=== PATIENT | female | born 1985 | race Caucasian/White ===

== ENCOUNTER 2016-11-04 22:54 | Inpatient (IN) | payer OTHER ==
--- NOTE | ~2016-11-04 | HP ---
Unit #: [id number] #: [id number] Patient: NAOMI MORRIS [id number] [place] [address] [id number] MR#: [id number] NAME: NAOMI MORRIS. ROOM: P177 Age: 30 Sex: F Admission Date: 11/04/2016 : 1985 Attending Physician: Adrienne Sarmiento M.D. Admitting Physician: Adrienne Sarmiento M.D. Primary Care Physician: Primary Care Physician No HISTORY AND PHYSICAL HISTORY OF PRESENT ILLNESS Naomi is a 30 year old admitted to [facility] because of her drug use. She shoots heroin. PAST MEDICAL HISTORY Long history of opioid abuse to include IV heroin. PAST SURGICAL HISTORY 1. x2. 2. Pelvic lap with right oophorectomy. ALLERGIES No known drug allergies. SOCIAL HISTORY Smokes 1 pack per day. Denies alcohol. Admits to a long history of opioid abuse to include IV heroin. FAMILY HISTORY Medically noncontributory. REVIEW OF SYSTEMS CONSTITUTIONAL: No fever or chills. HEENT: Denies any sore throat, ear pain or runny nose. CARDIOVASCULAR: Denies chest pain, irregular heart rhythm or palpitations. CHEST: Denies shortness of breath or cough. No hemoptysis. GASTROINTESTINAL: Denies nausea, vomiting, diarrhea or chronic constipation. ENDOCRINE: Denies history of increased thirst or urination. No recent significant weight loss or gain. GENITOURINARY: Denies dysuria, frequency, or hematuria. SKIN: She does report that she thinks that she broke a needle off in her left AC area 7 to 10 days ago. She complains of tenderness in the area. HEMATOLOGIC: Denies history of increased bleeding or bruising. MUSCULOSKELETAL: Denies any hot, swollen joints. No generalized muscle pain. NEUROLOGIC: Denies problems with vision or speech. No frequent, severe headaches. No numbness, tingling or weakness in any extremities. Denies loss of bladder or bowel control. CURRENT MEDICATIONS Detox protocol. Unit #: [id number] #: [id number] Patient: NAOMI MORRIS PHYSICAL EXAMINATION GENERAL: Alert, well-nourished, in no apparent distress. VITAL SIGNS: Blood pressure 100/50, heart rate 80, respirations 16, temperature 98.6. WEIGHT: 149. HEIGHT: 5 feet 2 inches. SKIN: Warm and dry without rash. She does have approximately nickel-sized round, raised, tender area along the left AC. There is minimal redness and no heat. HEENT: Normocephalic. TMs not viewed. Oral and nasal passages clear. Conjunctivae clear. PERRLA. EOMs intact. NECK: Supple without lymphadenopathy or thyromegaly. HEART: Regular rate and rhythm without murmur. LUNGS: Clear. ABDOMEN: Soft, nontender. : Not done. EXTREMITIES: No evidence of cyanosis, clubbing or edema. Moves all without focal deficit. NEUROLOGICAL: Grossly within normal limits. Cranial Nerves: II: Visual zepeda are intact. III, IV AND : Extraocular movements are intact. Pupils are equal, round and reactive to light. V: Facial sensation is grossly normal. VII: Facial movements and expression are normal. VIII: Auditory acuity grossly intact. IX, X: Uvula is midline. Phonation is normal. XI: Patient shrugs shoulders and turns head normally. XII: Tongue protrudes in the midline. Sensory and Motor Function: Sensory and motor sensation is grossly normal. Motor: moves all extremities well. Coordination: Gait is normal. Deep Tendon Reflexes: Intact. IMPRESSION 1. Psychiatric admission. 2. Long history of IV drug use. 3. Abscess along the left AC area. The patient reports there may be a piece of needle in that area. RECOMMENDATIONS PSYCHIATRIC: Per psychiatrist. MEDICAL: 1. See no contraindications to participate in facility's activities. 2. Detox per protocol. 3. Start Cleocin 300 mg 1 p.o. t.i.d. x7 days. Dictated by... Krystin Gamble PGlenAGlen-Kelly. for Jyoti Belcher/asuncion TD: 11/05/2016 19:09 JOB #: [id number] Unit #: [id number] #: [id number] Patient: NAOMI MORRIS HISTORY AND PHYSICAL Page 1 of 1 X Krystin Gamble HISTORY AND PHYSICAL
--- NOTE | ~2016-11-04 | PA ---
Unit #: [id number] #: [id number] Patient: [facility]ORRIS [id number] [facility] [address] [place] [address] [id number] I MR#: [id number] NAME: NAOMI MORRIS. ROOM: P177 Age: 30 Sex: F Admission Date: 11/04/2016 : 1985 Date of Assessment: 11/04/2016 Attending Physician: Adrienne Sarmiento M.D. Admitting Physician: Adrienne Sarmiento M.D. Primary Care Physician: Primary Care Physician No PSYCHIATRIC ASSESSMENT DATE OF SERVICE 11/05/2016. IDENTIFYING DATA Ms. Morris is a 30-year-old , white female, who is known to us from previous encounter and is currently a resident of [place], [place] and was self-referred to the hospital on a voluntary basis and accompanied by her mother. CHIEF COMPLAINT "I've been using heroin daily." HISTORY OF PRESENT ILLNESS Ms. Morris is a 30-year-old white female with history of substance abuse and dependence, who presented to the hospital stating that she has been using heroin daily for approximately five months and reports that she has been using half a gram of heroin a day via IV route with the last use being on the day of coming to the hospital and stated that she has been having significant withdrawal symptoms. She also reports increasing depression, anxiety, irritability, disturbed sleep and appetite, psychomotor retardation, feelings of hopelessness and helplessness, and reports that she feels like giving up because she was losing everything around her and reports suicidal ideation with a plan to overdose on heroin and was seemed to be danger to self and others, and as such, recommendation for inpatient level of care for safety and stabilization was made. SUBSTANCE ABUSE HISTORY The patient reports history of alcohol, cannabis, opiates and benzodiazepine abuse, and currently heroin appears to be her drug of choice. She reports that she has been using half a gram of IV heroin a day. PAST PSYCHIATRIC HISTORY The patient has [facility] a [facility] well as other [facility], and review of the medical records indicate currently she is not active in any treatment program, is not seeing a psychiatrist, and not taking psychotropic medications. PAST MEDICAL HISTORY No acute or chronic medical illnesses. Unit #: [id number] #: [id number] Patient: NAOMI MORRIS ALLERGIES No known medication allergies. CURRENT MEDICATIONS None. PERSONAL AND SOCIAL HISTORY A 30-year-old white female, who reports that she is single, unemployed, and essentially homeless and has poor social support system. MENTAL STATUS EXAMINATION Young white female, who is casually dressed with fair personal hygiene, appears to be in no acute distress or discomfort. She was awake and alert on interaction with intact orientation to time, place, and person. Her mood was anxious and depressed with a congruent affect. Her speech was slow and restricted in content. Her thought processes were disorganized with some looseness of associations and suicidal ideations. She denies any suicidal or homicidal ideations, and also denies any auditory or visual hallucinations. Her insight and judgment remain significantly impaired. DIAGNOSTIC IMPRESSION Psychiatric: Major depressive disorder, recurrent, moderate, without psychotic features; opiate dependence, moderate, in acute withdrawals. Medical: None. Stressors: Moderate psychosocial stressors. TREATMENT PLAN 1. The patient has presented with history of substance abuse and mood disorder, and has been decompensating and will need inpatient hospitalization for safety and stabilization. We will start her back on her home medications. We will adjust the medications and monitor response. 2. Supportive therapy was provided to the patient. 3. Safe, structured, and nourishing environment will be provided. ESTIMATED LENGTH OF STAY 5 to 7 days. ABILITY TO HELP SELF Limited. WILLINGNESS TO HELP SELF The patient appears to be willing to help self. STRENGTHS 1. Communicative. 2. Cooperative. PROBLEMS 1. Chronic dysphoric symptoms. 2. Chronic chemical dependency. 3. Poor social support system. DISCHARGE CRITERIA This will be contingent upon the patient's ability to show resolution of her depression and anxiety as well as her ability to stay safe to herself, particularly after discharge from the hospital. Unit #: [id number] #: [id number] Patient: NAOMI MORRIS Dictated by... Jyoti Payton/julissa TD: 11/05/2016 07:01 JOB #: [id number] PSYCHIATRIC ASSESSMENT Page 1 of 1 X TorstenAdrienne Grady MD X PSYCHIATRIC ASSESSMENT
--- NOTE | ~2016-11-04 | DS ---
Unit #: [id number] #: [id number] Patient: [facility] [id number] [facility] [address] [place] [address] [id number] I MR#: [id number] NAME: NAOMI MORRIS. ROOM: [facility] Age: 30 Sex: F Admission Date: 11/04/2016 : 1985 Discharge Date: 11/06/2016 Attending Physician: Adrienne Sarmiento M.D. Primary Care Physician: Primary Care Physician No DISCHARGE SUMMARY IDENTIFYING DATA Ms. Morris is a 30-year-old white female with history of mood disorder and substance abuse, who was self-referred to the hospital. DISCHARGE DIAGNOSES Psychiatric: Opioid dependence, moderate, in acute withdrawals. Medical: None. Stressors: Moderate psychosocial stressors. HISTORY OF PRESENT ILLNESS Please see initial psychiatric evaluation for details. PAST PSYCHIATRIC HISTORY Please see initial psychiatric evaluation for details. PAST MEDICAL HISTORY Please see initial psychiatric evaluation for details. HOSPITAL COURSE The patient was admitted [facility] and was oriented to the hospital environment. Routine p.r.n. medications were initiated and she was started back on her home medications and was closely monitored; however, she decided to leave against medical advice and as such, she was discharged from the program. DISCHARGE CONDITION Stable. PROGNOSIS Guarded. Dictated by... Adrienne Sarmiento M.D. IAA/modl TD: 12/03/2016 19:34 JOB #: [id number] Unit #: [id number] #: [id number] Patient: NAOMI MORRIS DISCHARGE SUMMARY Page 1 of 1 X Adrienne Sarmiento MD X DISCHARGE SUMMARY
--- NOTE | ~2016-11-04 | PN ---
Unit #: [id number] #: [id number] Patient: NAOMI MORRIS [id number] [facility] [address] [place] [address] [id number] I MR#: [id number] NAME: NAOMI MORRIS ROOM: [facility] Age: 30 Sex: F Admission Date: 11/04/2016 : 1985 Attending Physician: Adrienne Sarmiento M.D. Admitting Physician: Adrienne Sarmiento M.D. Primary Care Physician: Primary Care Physician Rupinder NEWELL NOTES DATE November 06, 2016 DISCUSSION Ms. Morris is a 30-year-old white female, with substance abuse and mood disorder, who was seen today and chart was reviewed and the case was discussed with the staff. She has been anxious, withdrawn, and rather seclusive to herself. Meanwhile, she has been cooperative with the treatment recommendations and she has been taking the medications and tolerating them fairly well with no reported side effects. MENTAL STATUS EXAMINATION Young white female, who was casually dressed with fair personal hygiene and appears to be in no acute distress or discomfort. She was awake and alert on interaction with intact orientation. Her mood was anxious and depressed with a congruent affect. Her speech is slow and goal-directed. She denies any suicidal or homicidal ideations. Her insight and judgment remain slightly impaired. TREATMENT PLAN 1. We will continue her on her current medications and treatment protocol, and will monitor her response to the medications, and make further adjustments as needed. 2. We will continue to followup. Dictated by... Jyoti Payton/ubaldo TD: 11/06/2016 10:54 JOB #: [id number] Unit #: [id number] #: [id number] Patient: NAOMI MORRISKENNETH PROGRESS NOTES Page 1 of 1 X Adrienne Sarmiento MD PROGRESS NOTE
[2016-11-05 09:36] LABS: BASOPHIL% 0.4 % (0-2.5); EOSINOPHIL# 0.2 X10e3 (0-0.7); EOSINOPHIL% 2.9 % (0.0-7.0); HEMATOCRIT 43.7 % (35.0-45.0); HEMOGLOBIN 14.1 gm/dL (12.0-16.0); LYMPHOCYTE# 3.8 X10e3 (1.0-3.5); LYMPHOCYTE% 44.5 % (17.0-45.0); MEAN CELL VOLUME 87.2 FL (83-96); MEAN CORPUSCULAR HGB CONC 32.2 g/dL (30-36); MEAN PLATELET VOLUME 10.4 FL (6.5-11.5); MONOCYTE# 0.8 X10e3 (0-1.0); MONOCYTE% 8.9 % (3.0-12.0); NEUTROPHIL# 3.7 X10e3 (1.5-7.1); NEUTROPHIL% 43.3 % (40-75); PLATELET COUNT 219 X10e3 (140-420); RED BLOOD COUNT 5.02 X10e (3.90-5.30); WHITE BLOOD COUNT 8.5 X10e3 (4.0-10.5)
[2016-11-05 09:53] LABS: DIFF IND NO
[2016-11-05 09:56] LABS: ALBUMIN SERUM 3.3 g/dL (3.5-5.0); BILIRUBIN,TOTAL 0.4 mg/dL (0.2-2.0); BUN/CREATININE RATIO 14.28; CALCIUM SERUM 8.9 mg/dL (8.4-10.2); CREATININE SERUM 0.7 mg/dL (0.6-1.4); GLOM FILT RATE Estimated 117.1 mL/min (>60); POTASSIUM 4.1 mmol/L (3.5-5.1); PROTEIN TOTAL SERUM 6.4 g/dL (6.0-8.3)
[2016-11-06 12:36] LABS: URINE BILIRUBIN NEG (NEG); URINE BLOOD NEG (NEG); URINE COLOR YELLOW; URINE GLUCOSE NEG (NEG); URINE KETONE NEG (NEG); URINE LEUKOCYTE ESTERASE NEG (NEG); URINE NITRATE NEG (NEG); URINE PROTEIN NEG (NEG); URINE SPECIFIC GRAVITY 1.016 (1.003-1.035); URINE UROBILINOGEN 0.2 MG/DL (NEG)
[2016-11-06 12:45] LABS: URINE APPEARANCE SL HAZY
[2016-11-06 12:58] LABS: AMPHETAMINE NEG (NEG); BARBITURATES NEG (NEG); BENZODIAZEPINES NEG (NEG); COCAINE NEG (NEG); MARIJUANA NEG (NEG); OPIATES POS (NEG); TRICYCLIC ANTIDEPRESSANTS NEG (NEG); U METHADONE NEG (NEG)
== END 2016-11-06 14:15 | disposition left against medical advice (07) | DRG 885 ==
LOC: P1E 22:54
PROVIDERS: Psychiatry & Neurology Psychiatry
PROC: HZ2ZZZZ Detoxification Services for Substance Abuse Treatment (ICD-10-PCS; principal; 2016-11-04)
DX: F33.1 Major depressive disorder, recurrent, moderate (principal); F11.23 Opioid dependence with withdrawal; L02.414 Cutaneous abscess of left upper limb; F17.210 Nicotine dependence, cigarettes, uncomplicated
CPT/HCPCS: 80053; 80307; 81003; 84703; 85025; 86592